=== PATIENT | male | born 1945 | race Caucasian/White ===

== ENCOUNTER → 2016-04-15 | Outpatient (CLI) | payer MEDICARE, BC ==
[~2016-04-15] MED LIST: ALLOPURINOL100 MG PO; CO Q-10200 MG PO; COLACE100 MG PO; FISH OIL 1,2001 EACH PO; FLAGYL500 MG PO; GLUCOPHAGE500 MG PO; LEVAQUIN500 MG PO; METAMUCIL CAPSU1 CAP PO; NEOMYCIN500 MG PO; NORCO 5-325 TA1 EACH PO; ZOCOR40 MG PO
== END | disposition disaster alternative care site (69) ==
LOC: GKIC 11:40
DX: C83.30 Diffuse large B-cell lymphoma, unspecified site (principal); M62.81 Muscle weakness (generalized); D70.1 Agranulocytosis secondary to cancer chemotherapy
CPT/HCPCS: A9552